=== PATIENT | female | born 1975 | race Asian ===

== ENCOUNTER 2018-09-30 05:37 | Day surgery (SDC) | payer BC ==
[2018-09-30] VITALS (13 sets, daily range): BP systolic 86–105; BP diastolic 49–73; PULSE 66–78; RESP 14–28; Ht 152.4 cm; Wt 62.1 kg
[~2018-09-30] VITALS: Ht 152.4 cm; Wt 62.1 kg
[2018-09-30] MEDS ORDERED: PROPOFOL 20 ML ONE (06:25)
[2018-09-30] MEDS ORDERED: CEFAZOLIN 1 GM INJ ONE (06:25)
[2018-09-30] MEDS ORDERED: MIDAZOLAM 1 MG/ML 2 ML INJ ONE (06:26)
[2018-09-30] MEDS ORDERED: KETOROLAC 30 MG INJ ONE (06:27)
[2018-09-30] MEDS ORDERED: ONDANSETRON 4 MG INJ ONE (06:27)
[2018-09-30] MEDS ORDERED: STRONG IODINE 14 ML SOLUTION TOP ONE (07:00)
--- NOTE | 2018-09-30 07:07 | PREAC ---
Date/Time of Note Date/Time of Note DATE: 09/30/18 TIME: 06:23 Anesthesia Eval and Record Evaluation Time Pre-Procedure Interview DATE: 09/30/18 TIME: 06:23 Age 43 Sex female NPO: 8 hrs Preoperative diagnosis Cervical Cancer Planned procedure LEEP Past Medical History Past Medical History: None Surgery & Anesthesia Issues No known issue Meds Anticoagulation: No Beta Melody within 24 hr: No Reason Beta Melody not given: Pt. not on B-Melody Meds reviewed: Yes Allergies Coded Allergies: No Known Drug Allergies (Verified Allergy, Unknown, 09/29/18) Allergies Reviewed: Yes Labs/Studies Labs Reviewed: Reviewed by anesthesiologist test: Negative Pre-procedure Exam Airway: Adequate mouth opening Mallampati: Mallampati II Teeth: Normal Lung: Normal Heart: Normal ASA Physical Status ASA physical status: 2 Emergency: None Planned Anesthetic General/MAC: LMA Pre-operative Attestations Prior to commencing anesthesia and surgery, the patient was re-evaluated, there was verification of: *The patient's identity *The results of appropriate recent lab work and preoperative vital signs *The above evaluation not changing prior to induction *Anesthetic plan, risk benefits, alternative and complications discussed with patient/family; questions answered; patient/family understands, accepts and wishes to proceed. MANUEL DUFFY MD September 30, 2018 07:07
[2018-09-30] MEDS ORDERED: PHENYLephrine (100 MCG/ML) 10ML SYG ONE (07:28)
[2018-09-30] MEDS ORDERED: OXYCODONE/ACETAMINOPHEN (5/325) TAB PO PRN (07:30)
[2018-09-30] MEDS ORDERED: LACTATED RINGER'S 1,000 ML IV SCH (07:30)
[2018-09-30] MEDS ORDERED: HYDROmorphONE 1 MG/5 ML IV SYRINGE IV PRN (07:30)
[2018-09-30] MEDS ORDERED: ONDANSETRON 4 MG INJ IV PRN (07:30)
--- NOTE | 2018-09-30 07:59 | PAC ---
Date/Time of Note Date/Time of Note DATE: 09/30/18 TIME: 07:59 Post-Anesthesia Notes Post-Anesthesia Note Last documented vital signs Vital Signs Date Temp Pulse Resp B/P (MAP) Pulse Ox O2 O2 Flow FiO2 Time Delivery Rate 09/30/18 98.8 78 18 104/73 99 Room Air 07:00 (83) Activity: WNL Respiratory function: WNL Cardiovascular function: WNL Mental status: Baseline Pain reasonably controlled: Yes Hydration appropriate: Yes Nausea/Vomiting absent: Yes MANUEL DUFFY MD September 30, 2018 07:59
--- NOTE | 2018-09-30 08:21 | PD.PPDC ---
HOSPITAL WARD CLERK Discharge Instruction Condition [id number] Patient Condition: Jhuru7y Fair Diet Xeuxi5Bi Diet: Xcptd3g Resume Regular Diet Activity/Restrictions Boeri0Kl Activity: Fyyrz7q Normal Activity May Shower Iptyd3Em Restrictions: Aeqsj8c No Exercising No Lifting No Driving No Sexual Activity Nothing in the Vagina No [place] No Tampons, douche Follow-up Follow-up with Physician: 2, Week/Weeks Return to clinic for Khbjy9Wo EVS TECH Instructions: Gpouy8h Fever greater than 101 Chills Worsening abdominal pain Excessive Vaginal Bleeding More than 2 pads per hour Unable to tolerate diet [id number] OB Instructions: Adhfa2h Breast Tenderness Depression Blurried Vision Headache Qajis2Fr Surgical Instructions: Efgla1b Incisional Drainage Incisional Redness ARNOLD RAMOS MD September 30, 2018 08:21
--- NOTE | 2018-09-30 08:23 | OPPN ---
Date/Time of Note Date/Time of Note DATE: 09/30/18 TIME: 08:21 Operative Report Planned Procedure Procedure date September 30, 2018 Procedure(s) LEEP Performed by see signature line Wood Patternmaker: ARNOLD RAMOS MD 2nd Wood Patternmaker none Pre-procedure diagnosis cervical dysplasia Puyqw0So Anesthesia Type: Daysq0c general Post-Procedure Post-procedure diagnosis same Findings normal cervix, no lesion Estimated Blood Loss: minimal Specimen(s) cervix Grafts/Implant(s) none Complication(s) none ARNOLD RAMOS MD September 30, 2018 08:23
--- NOTE | 2018-09-30 08:28 | PREOPHP ---
DATE OF ADMISSION: 09/30/2018 HISTORY OF PRESENT ILLNESS: Ms. Priya Pires is a 43-year-old 2, para 2 with cervical dys plasia, CHAS 3 scheduled today for a LEEP procedure. PAST MEDICAL HISTORY: None. MEDICATIONS: vitamins. PAST SURGICAL HISTORY: None. OBSTETRICAL HISTORY: x2 vaginal delivery. GYNECOLOGIC HISTORY: 14, regular 3 to 4 days. She denies any sexually transmitted infections. Sexu ally active with 1 partner. SOCIAL HISTORY: She denies any smoking, drugs or alcohol. FAMILY HISTORY: None. REVIEW OF SYSTEMS: All within normal except history of present illness. PHYSICAL EXAMINATION: HEENT: Within normal. LUNGS: CTA bilateral. CARDIOVASCULAR: S1, S2, regular rhythm. ABDOMEN: Gravid, nontender. Negative distention. EXTREMITIES: Negative edema. No calf tenderness. VAGINAL: Normal external genitalia. Cervix negative CMT, negative lesions. Adnexa negative mass, n ontender bilateral. Fundus within normal limits. Cervical biopsy performed on 05/27/2018. Cervix at 12 o'clock CIN3/HPV. Cervix at 3 o'clock CIN2/HP V. Cervix 6 o'clock, CIN2/HPV, endocervix small fragments of benign endocervical tissue and benign e ctocervical cells. Pap smear performed on 03/31/2018. Positive for epithelial cell abnormality, high grade squamous int raepithelial lesion. ASSESSMENT: Cervical dysplasia, CIN3. PLAN: Consent for a loop electrode excision procedure/LEEP. Dictated By: ARNOLD LAZARO/BRYAN Conf#: [id number] DID#: [id number] CC: ARNOLD RAMOS MD;*EndCC*
--- NOTE | 2018-10-01 17:44 | OPR ---
DATE OF OPERATION: 09/30/2018 PREOPERATIVE DIAGNOSIS: Cervical dysplasia. POSTOPERATIVE DIAGNOSIS: Cervical dysplasia. OPERATION PERFORMED: Loop electrosurgical excision procedure/LEEP. SURGEON: Arnold Quinteros MD ANESTHESIA: General. ESTIMATED BLOOD LOSS: Minimal. PATHOLOGY: Portion of the cervix. FINDINGS: Bimanual examination revealed normal-sized midline uterus with no adnexal mass palpated. The cervix did not appear to have any gross masses. Lugol's solution revealed areas of nonreuptake a round the squamocolumnar junction. The ectocervix with anterior and posterior portion. Endocervical specimen from ____. DESCRIPTION OF THE PROCEDURE: After explaining the risks, benefits and alternatives to the patient, the patient was taken to the OR where the patient was placed under anesthesia without difficulty. Th e patient was then draped in a usual sterile fashion and placed in a dorsal lithotomy position. Preo perative bimanual examination revealed findings noted above. A preoperative urinary test a s well was negative. At this time, a large Graves speculum was placed in the patient's vagina. Clarke l's solution was painted along the entire cervix and the vaginal wall. Areas of the nonreuptake note d to be around squamocolumnar junction. A large loop electrode was used to remove the top portion of the cervix and sent to pathology. The bed of the excised cervix tissue along the cervix was cauteri zed using the rollerball. Good hemostasis was noted. All instruments were removed. At this point, the patient tolerated the procedure without any complication and was taken to recovery room in stable condition. Dictated By: ARNOLD LAZARO/BRYAN Conf#: [id number] DID#: [id number]
== END 2018-09-30 10:12 | disposition home or self-care (01) ==
LOC: SDS 05:37
PROVIDERS: ATTEND Obstetrics & Gynecology
DX: N72 Inflammatory disease of cervix uteri (principal)
CPT/HCPCS: 57522; 85025; 86850; 86900; 86901; 88307; J0690; J1885; J2250; J2370; J2405; J3010; Z7512; Z7610